=== PATIENT | female | born 1980 | race Two or more races ===

== ENCOUNTER 2018-07-17 22:59 | Emergency (ER) | payer MEDICARE, OTHER ==
[~2018-07-17] VITALS: Ht 165.1 cm; Wt 56.7 kg
--- NOTE | 2018-07-17 23:30 | NUR ---
PT CAME TO EMERGENCY DEPT. COMPLAINING OF HEADACHE THAT RADIATES TO NECK AND NAUSEA THAT STARTED AT 0500 AM. PT AAXO4. RESPIRATIONS EVEN AND UNLABORED. PT PUT ON THE MONITOR AND PULSE OX. PENDING EVAL FROM ER .
--- NOTE | 2018-07-17 23:30 | NUR ---
Note hafsaone in EDM - 07/18/18 at 0032 by NANCY PT CAME TO EMERGENCY DEPT. COMPLAINING OF HEADACHE THAT RADIATES TO NECK AND NAUSEA THAT STARTED AT 1700 LAST NIGHT. PT AAXO4. RESPIRATIONS EVEN AND UNLABORED. PT PUT ON THE MONITOR AND PULSE OX. PENDING EVAL FROM [facility] GIRARD.
--- NOTE | 2018-07-17 23:33 | NUR ---
CELIO GIRARD AT BEDSIDE.
[2018-07-18] MEDS ORDERED: HYDROMORPHONE INJ 2 MG/ML DISP.SYRIN IV ONE
[2018-07-18] MEDS ORDERED: ONDANSETRON HCL/PF 4 MG/2 ML VIAL IVP ONE
[2018-07-18] MEDS ORDERED: IV NS 0.9% 1,000 ML BAG IV ONE
[2018-07-18 00:09] LABS: BASOPHILS % (AUTO) 0.3 % (0.0-2.0); EOSINOPHILS % (AUTO) 0.4 % (0.0-6.0); HEMATOCRIT 37 % (33-45); HEMOGLOBIN 11.9 g/dL (11.5-14.8); LYMPHOCYTES # (AUTO) 1.6 /CMM (0.8-4.8); LYMPHOCYTES % (AUTO) 21.7 % (20.0-44.0); MEAN CORPUSCULAR HGB CONC 33 g/dl (31.0-36.0); MEAN CORPUSCULAR VOLUME 87 fL (82-100); MONOCYTES # (AUTO) 0.5 /CMM (0.1-1.30); MONOCYTES % (AUTO) 6.6 % (2.0-12.0); NEUTROPHILS # (AUTO) 5.2 /CMM (1.8-8.9); PLATELET COUNT (AUTO) 232 /CMM (150-450); RED BLOOD CELL COUNT(AUTO) 4.18 MIL/uL (4.0-5.2); WHITE BLOOD COUNT (AUTO) 7.3 K/uL (4.3-11.0)
[2018-07-18 00:19] LABS: CALCIUM, SERUM 9.3 mg/dL (8.5-10.1); CREATININE 0.5 mg/dL (0.6-1.3); POTASSIUM 3.5 mmol/L (3.5-5.1)
--- NOTE | 2018-07-18 00:19 | NUR ---
PT TAKEN TO CT.
[2018-07-18] MEDS ORDERED: HYDROMORPHONE INJ 2 MG/ML DISP.SYRIN ONE (01:19)
[2018-07-18] MEDS ORDERED: HYDROMORPHONE INJ 2 MG/ML DISP.SYRIN IM ONE (01:30)
--- NOTE | 2018-07-18 02:10 | NUR ---
Patient discharged to home in stable condition. Written and verbal after care instructions given, and rx for narcan, pt states h/a feels much better. Patient verbalizes understanding of instruction.
--- NOTE | 2018-07-18 02:10 | NUR ---
IV FLUIDS AND ZOFRAN NOT GIVEN, UNABLE TO INSERT IV LINE.
[2018-07-18 02:13] VITALS: BP 102/72
== END 2018-07-18 02:15 | disposition home or self-care (01) ==
LOC: ER 23:02
DX: R51 Headache (principal); M32.9 Systemic lupus erythematosus, unspecified; G89.4 Chronic pain syndrome; G40.909 Epilepsy, unspecified, not intractable, without status epilepticus; G81.94 Hemiplegia, unspecified affecting left nondominant side; E78.5 Hyperlipidemia, unspecified; H54.40 Blindness, one eye, unspecified eye; Z86.73 Personal history of transient ischemic attack (TIA), and cerebral infarction without residual deficits; Z98.890 Other specified postprocedural states; Z96.643 Presence of artificial hip joint, bilateral; Z96.653 Presence of artificial knee joint, bilateral; Z90.89 Acquired absence of other organs; Z88.8 Allergy status to other drugs, medicaments and biological substances
CPT/HCPCS: 36415; 70450; 80048; 85025; 85730; 96372; 99284; A4606; J1170; J7030